=== PATIENT | female | born 1975 | race African-American/Black ===

== ENCOUNTER 2016-02-27 08:18 | Emergency (ER) | payer OTHER ==
[2016-02-27 08:48] VITALS: BP 129/79; PULSE 69; TEMP 98.7; BMI 32.3
[2016-02-27] MEDS ORDERED: MECLIZINE HCL 25 MG TABLET (FP) PO ONE (09:44)
[2016-02-27] MEDS ORDERED: MECLIZINE HCL 25 MG TABLET (FP) ONE (09:51)
--- NOTE | 2016-02-27 09:52 | PDOC ---
History of Present Illness - General Chief Complaint: Lightheaded Stated Complaint: DIZZINESS, NAUSEA Time Seen by Provider: 02/27/16 09:21 History Source: Patient Exam Limitations: No Limitations - History of Present Illness Initial Comments: 02/27/16 09:48 41 yr female no medical history states she is dizzy, light headed since last night. Pt states she had chest pain 2 days ago, that lasted 3 hours then resolved on own. Pt denies fever or chills no CP now. Pt denies taking any medication. no vision changes, no sore throat or shortness of breath. Pt has mild nausea, denies urinary complaints. no leg or arm weakness or facial numbness or tingling. Timing/Duration: intermittent Severity: mild Associated Symptoms: reports: chest pain Past History - Past Medical History Allergies/Adverse Reactions: Allergies Allergy/AdvReac Type Severity Reaction Status Date / Time No Known Allergies Allergy Verified 02/27/16 08:43 Home Medications: Ambulatory Orders Meclizine HCl [Antivert -] 25 mg PO TID PRN #21 tablet 02/27/16 Other medical history: denies - Surgical History Other Surgical History: 02/27/16 09:50 none - Psycho/Social/Smoking Cessation Hx Anxiety: No Suicidal Ideation: No Smoking Status: No Smoking History: Never smoked Number of Cigarettes Smoked Daily: 0 Hx Alcohol Use: No Drug/Substance Use Hx: No Substance Use Type: None, Alcohol Review of Systems - Review of Systems Able to Perform ROS?: Yes Is the patient limited Czech proficient: No Constitutional: No: Symptoms Reported HEENTM: No: Symptoms Reported Respiratory: No: Symptoms reported Cardiac (ROS): Yes: See HPI Neurological: Yes: Symptoms reported, Dizziness *Physical Exam - Vital Signs Last Vital Signs Temp Pulse Resp BP Pulse Ox 98.7 F 69 16 129/79 100 02/27/16 08:43 02/27/16 08:43 02/27/16 08:43 02/27/16 08:43 02/27/16 08:43 - Physical Exam General Appearance: Yes: Nourished, Appropriately Dressed. No: Apparent Distress HEENT: positive: EOMI, BRISA, Normal ENT Inspection, TMs Normal, Pharynx Normal Neck: positive: Supple. negative: Carotid bruit, Lymphadenopathy (R), Lymphadenopathy (L) Respiratory/Chest: positive: Lungs Clear, Normal Breath Sounds Cardiovascular: positive: Regular Rhythm, Regular Rate Vascular Pulses: Femoral (R): 2+, Femoral (L): 2+, Carotid (R): 2+, Carotid (L) : 2+, Dorsalis-Pedis (R): 2+, Doralis-Pedis (L): 2+ Gastrointestinal/Abdominal: positive: Normal Bowel Sounds, Soft Musculoskeletal: positive: Normal Inspection Extremity: positive: Normal Capillary Refill, Normal Inspection, Normal Range of Motion Integumentary: positive: Normal Color, Dry, Warm Neurologic: positive: Fully Oriented, Alert, Normal Mood/Affect, Normal Response , Motor Strength 5/5, Finger to Nose (intact). negative: Numbness, Sensory Deficit, Confused, Disoriented Heart Score/ECG Review - ECG Impressions Normal ECG: Yes Non-specific ST Elevation: No Comment:: 02/27/16 11:38 NSR ED Treatment Course - LABORATORY CBC & Chemistry Diagram: 02/27/16 10:00 02/27/16 10:00 - ADDITIONAL ORDERS Additional order review: Laboratory Results 02/27/16 09:15 Urine HCG, Qual Negative - RADIOLOGY Radiology Studies Ordered: Category Date Time Status HEAD CT WITHOUT CONTRAST [CT] Stat CT Scan 02/27/16 09:45 Ordered Medical Decision Making - Medical Decision Making 02/27/16 09:51 cc: dizzyness since last night chest pressure 2 days ago , none now no headache or vision changes will r/o TIA, r/o ACS Ekg, labs, head ct meclizine for dizzyness 02/27/16 11:46 pt feels better after meclizine, pt reading and texting, I have discussed with pt to avoid reading and texting to avoid dizzynes. Pt agrees with plan and understands the plan of care. *DC/Admit/Observation/Transfer Diagnosis at time of Disposition: Dizziness - Discharge Dispostion Disposition: HOME Condition at time of disposition: Good - Prescriptions Prescriptions: Meclizine HCl [Antivert -] 25 mg PO TID PRN #21 tablet PRN Reason: dizzyness - Patient Instructions Additional Instructions: follow with your doctor tomorrow for follow up visit drink at least 2-3 liters of water to stay hydrated take meclizine for dizzyness avoid texting and reading, watching TV as this can make symptoms worse. return to ER for any worsening symptoms
[2016-02-27 10:19] LABS: MCH 29.6 pg (25.7-33.7); MCHC 32.8 g/dl (32.0-36.0); MEAN CELL VOLUME 90.4 fl (80-96); PLATELET COUNT 219 K/MM3 (134-434); RDW 14.8 % (11.6-15.6); WHITE BLOOD COUNT 6.6 K/mm3 (4.0-10.0)
[2016-02-27 10:36] LABS: ALBUMIN 3.9 g/dl (3.4-5.0); ANION GAP 5 (8-16); BILIRUBIN,TOTAL 0.4 mg/dL (0.2-1.0); CALCIUM 8.7 mg/dL (8.5-10.1); CO2 27 mmol/L (21-32); CREATININE 0.7 mg/dL (0.55-1.02); GLUCOSE,RANDOM 98 mg/dL (74-106); SGOT/AST 15 U/L (15-37); SGPT/ALT 17 U/L (12-78); TOT PROT 7.9 g/dl (6.4-8.2)
[2016-02-27 10:39] LABS: ALK PHOS 65 U/L (45-117); TROPONIN I < 0.02 ng/ml (0.00-0.05)
--- NOTE | 2016-02-27 17:48 | EKG ---
Test Reason : Blood Pressure : / mmHG Vent. Rate : 060 BPM Atrial Rate : 060 BPM P-R Int : 196 ms QRS Dur : 092 ms QT Int : 358 ms P-R-T Axes : 050 001 033 degrees QTc Int : 358 ms NORMAL SINUS RHYTHM NORMAL ECG WHEN COMPARED WITH ECG OF 30-MAR-2008 13:54, VENT. RATE HAS DECREASED BY 48 BPM Confirmed by WILLI العلي MD ([id number]) on 02/27/2016 4:58:06 PM Referred By: Confirmed By:WILLI العلي MD
== END 2016-02-27 11:56 | disposition home or self-care (01) ==
LOC: JERFT 08:18
DX: R42 Dizziness and giddiness (principal)
CPT/HCPCS: 36415; 70450-TC; 80053; 82550; 82553; 84484; 84703; 85027; 93005; 93010; 99281-25